=== PATIENT | male | born 1960 | race Caucasian/White ===

== ENCOUNTER 2017-04-13 10:30 | Emergency (ER) | payer OTHER ==
[~2017-04-13] VITALS: Ht 188 cm; Wt 99.8 kg
[~2017-04-13 10:30] MED LIST: ALBU90I INH; ALBU90OI INH; AMOCLA875 PO; AMOX500 PO; ARTANE PO; Abilify2 MG; BENZ.5 PO; BENZ1 PO; BENZ2; Benztropine Me0.5 MG; CEPH500 PO; CLOZ100 PO; COGENTIN; DEPRESSION MED; FLUP5; GABA300 PO; HALO.5; HYDACE5 PO; Haldol Dec100 MG/1 M IM; IBUP800 PO; LORA.5; LORA1 PO; NAPR500; NAPR500 PO; OFLO.3OTSO LEFTEAR; OLAN10; PARO20; PARO30 PO; PENVK500 PO; PROLIXIN; Prednisone20 MG PO; RXHYD5325 PO; RXHYDACE PO; RXPENVK250 PO; SEROQUEL; SYMBYAX PO; TRAM50 PO; TRAZ50; TRIH2; [UNRECOGNIZED DRUG - OTHER]; [UNRECOGNIZED DRUG - REMARK]
[2017-04-13 11:20] LABS: BASOPHILS ABSOLUTE AUTO 0.12 K/mm3 (0.00-0.23); BASOPHILS PERCENT AUTO 1 % (0-2); EOSINOPHILS ABSOLUTE AUTO 0.37 K/mm3 (0.00-0.68); EOSINOPHILS PERCENT AUTO 3 % (0-6); Hemoglobin 15.4 g/dL (13.5-17.5); IMMATURE GRAN ABSOLUTE AUTO 0.22 K/mm3 (0.00-0.10); IMMATURE GRAN PERCENT AUTO 2 % (0-1); LYMPHOCYTES ABSOLUTE AUTO 3.66 K/mm3 (0.84-5.20); LYMPHOCYTES PERCENT AUTO 31 % (21-46); MONOCYTES ABSOLUTE AUTO 0.62 K/mm3 (0.16-1.47); MONOCYTES PERCENT AUTO 5 % (4-13); Mean Corpuscular HGB 31.8 pg (26.0-34.0); Mean Corpuscular HGB Conc 33.5 g/dL (31.5-36.5); Mean Corpuscular Volume 95 fL (80-100); Mean Platelet Volume 10.6 fL (9.1-12.4); NEUTROPHILS ABSOLUTE AUTO 7.02 K/mm3 (1.96-9.15); NEUTROPHILS PERCENT AUTO 58 % (41-73); Platelet Count 259 K/mm3 (150-400); RDW Coefficient Variation 13.3 % (11.7-14.2); RDW Standard Deviation 47.2 fL (35.1-46.3); Red Blood Cell Count 4.84 M/mm3 (4.30-5.90); White Blood Cell Count 12.01 K/mm3 (4.00-11.30)
[2017-04-13 11:22] LABS: International Normalized Ratio 1.1; Prothrombin Time Results 11.5 Sec (9.7-11.5)
[2017-04-13 11:26] LABS: Alanine Aminotransfer (ALT/SGP 35 U/L (12-78); Albumin, Blood 3.9 g/dL (3.4-5.0); Albumin/Globulin Ratio 0.9 (0.8-1.8); Alk Phos 150 U/L (50-136); Anion Gap 8 mmol/L (6-16); Aspartate Aminotrans (AST/SGOT 33 U/L (12-37); Bilirubin, Total 0.5 mg/dL (0.1-1.0); Blood Urea Nitrogen 11 mg/dL (8-24); Bun/Creatinine Ratio 10.5 (12.0-20.0); CO2, Blood 27 mmol/L (21-32); Calcium, Blood 9.1 mg/dL (8.5-10.1); Chloride, Blood 105 mmol/L (98-108); Creatinine, Blood 1.05 mg/dL (0.60-1.20); Ethanol (Alcohol), Blood, Med <3 mg/dL; Globulin, Blood 4.2 g/dL (2.2-4.0); Glomerular Filtration Rate >60 (60-); Glucose, Blood 113 mg/dL (70-99); Potassium, Blood 3.9 mmol/L (3.5-5.5); Sodium, Blood 140 mmol/L (136-145); Total Protein, Blood 8.1 g/dL (6.4-8.2)
[2017-04-13] MEDS ORDERED: LORA.5 PO (12:46)
[2017-04-13] MEDS ORDERED: LATUDA80 MG PO (12:46)
[2017-04-13] MEDS ORDERED: GABA300 (12:47)
[2017-04-13] MEDS ORDERED: POLYOX WSR-3011 GM (12:47)
[2017-04-13] MEDS ORDERED: Haldol Dec100 MG/1 M (12:48)
[2017-04-13] MEDS ORDERED: Benztropine Me0.5 MG PO (12:48)
[2017-04-13] MEDS ORDERED: CYCL10 PO (12:49)
== END 2017-04-13 13:29 | disposition short-term general hospital (02) ==
LOC: ER 10:30
PROVIDERS: Emergency Medicine
DX: S22.42XA Multiple fractures of ribs, left side, initial encounter for closed fracture (principal); S22.20XA Unspecified fracture of sternum, initial encounter for closed fracture; S82.041A Displaced comminuted fracture of right patella, initial encounter for closed fracture; S22.079A Unspecified fracture of T9-T10 vertebra, initial encounter for closed fracture; S60.511A Abrasion of right hand, initial encounter; S39.91XA Unspecified injury of abdomen, initial encounter; F17.210 Nicotine dependence, cigarettes, uncomplicated; Z86.19 Personal history of other infectious and parasitic diseases; Z90.89 Acquired absence of other organs; V49.9XXA Car occupant (driver) (passenger) injured in unspecified traffic accident, initial encounter
CPT/HCPCS: 70450; 71045; 71260; 72125; 72170; 73562-RT; 74177; 80053; 82947; 83690; 84484; 85025; 85610; 85730; 86850; 86900; 86901; 93005; 93010; 96361; 96374; 96375; 99285; G0480; J2270; J2405; J7030; Q9967

== ENCOUNTER 2017-05-04 11:55 | Emergency (ER) | payer OTHER ==
[~2017-05-04] VITALS: Ht 185.4 cm; Wt 133.8 kg
[~2017-05-04 11:55] MED LIST changes: +Benztropine Me0.5 MG PO; +CYCL10 PO; +GABA300; +Haldol Dec100 MG/1 M; +LATUDA80 MG PO; +LORA.5 PO; +POLYOX WSR-3011 GM
== END 2017-05-04 13:45 | disposition home or self-care (01) ==
LOC: ER 11:55
DX: I82.401 Acute embolism and thrombosis of unspecified deep veins of right lower extremity (principal); F20.0 Paranoid schizophrenia; F17.210 Nicotine dependence, cigarettes, uncomplicated; Z79.899 Other long term (current) drug therapy
CPT/HCPCS: 99282

== ENCOUNTER 2018-07-08 11:10 | Emergency (ER) | payer OTHER ==
[~2018-07-08] VITALS: Ht 185.4 cm; Wt 136.1 kg
== END 2018-07-08 13:52 | disposition home or self-care (01) ==
LOC: ER 11:10
DX: R45.1 Restlessness and agitation (principal); F17.210 Nicotine dependence, cigarettes, uncomplicated; Z79.899 Other long term (current) drug therapy
CPT/HCPCS: 99283

== ENCOUNTER → 2019-03-02 | Outpatient (CLI) | payer OTHER ==
[2019-03-02 11:24] LABS: BASOPHILS ABSOLUTE AUTO 0.05 K/mm3 (0.00-0.23); BASOPHILS PERCENT AUTO 1 % (0-2); EOSINOPHILS ABSOLUTE AUTO 0.26 K/mm3 (0.00-0.68); EOSINOPHILS PERCENT AUTO 5 % (0-6); Hematocrit 41.8 % (37.0-53.0); Hemoglobin 13.9 g/dL (13.5-17.5); IMMATURE GRAN ABSOLUTE AUTO 0.01 K/mm3 (0.00-0.10); IMMATURE GRAN PERCENT AUTO 0 % (0-1); LYMPHOCYTES ABSOLUTE AUTO 1.89 K/mm3 (0.84-5.20); LYMPHOCYTES PERCENT AUTO 33 % (21-46); MONOCYTES PERCENT AUTO 7 % (4-13); Mean Corpuscular HGB Conc 33.3 g/dL (31.5-36.5); Mean Corpuscular Volume 93 fL (80-100); Mean Platelet Volume 9.8 fL (9.1-12.4); NEUTROPHILS ABSOLUTE AUTO 3.14 K/mm3 (1.96-9.15); NEUTROPHILS PERCENT AUTO 55 % (41-73); Platelet Count 254 K/mm3 (150-400); RDW Standard Deviation 44.2 fL (35.1-46.3); Red Blood Cell Count 4.49 M/mm3 (4.30-5.90); White Blood Cell Count 5.75 K/mm3 (4.00-11.30)
[2019-03-02 11:36] LABS: Albumin, Blood 4.1 g/dL (3.4-5.0); Albumin/Globulin Ratio 1.1 (0.8-1.8); Bilirubin, Total 0.7 mg/dL (0.1-1.0); Bun/Creatinine Ratio 11.3 (12.0-20.0); Calcium, Blood 9.1 mg/dL (8.5-10.1); Creatinine, Blood 1.33 mg/dL (0.60-1.20); Globulin, Blood 3.6 g/dL (2.2-4.0); Potassium, Blood 3.9 mmol/L (3.5-5.5); Total Protein, Blood 7.7 g/dL (6.4-8.2)
== END | disposition home or self-care (01) ==
LOC: LAB SHORT 11:20 → LAB EV 11:20
PROVIDERS: General Practice
DX: F20.9 Schizophrenia, unspecified (principal)
CPT/HCPCS: 80053; 85025

== ENCOUNTER 2019-10-29 18:12 | Emergency (ER) | payer OTHER ==
[~2019-10-29] VITALS: Ht 185.4 cm; Wt 136.1 kg
[2019-10-29] MEDS ORDERED: IBUP800 PO (20:03)
== END 2019-10-29 20:21 | disposition home or self-care (01) ==
LOC: ER 18:12
DX: M54.42 Lumbago with sciatica, left side (principal); F20.0 Paranoid schizophrenia; Z79.899 Other long term (current) drug therapy; F17.210 Nicotine dependence, cigarettes, uncomplicated
CPT/HCPCS: 96372; 99283-25; J1100; J1170; J1885

== ENCOUNTER 2019-12-27 12:53 | Emergency (ER) | payer OTHER ==
[~2019-12-27] VITALS: Ht 185.4 cm; Wt 154.2 kg
[2019-12-27] MEDS ORDERED: BENZ2 PO (13:01)
[2019-12-27] MEDS ORDERED: HALO5 PO (13:01)
[2019-12-27] MEDS ORDERED: IBUP800 PO (13:54)
[2019-12-27] MEDS ORDERED: Robaxin-750750 MG PO (13:54)
== END 2019-12-27 14:19 | disposition home or self-care (01) ==
LOC: ER 12:53
DX: M25.552 Pain in left hip (principal); F20.0 Paranoid schizophrenia; F17.200 Nicotine dependence, unspecified, uncomplicated; Z79.899 Other long term (current) drug therapy
CPT/HCPCS: 99283

== ENCOUNTER 2020-04-26 13:58 | Emergency (ER) | payer OTHER ==
[~2020-04-26] VITALS: Ht 185.4 cm; Wt 113.4 kg
[~2020-04-26 13:58] MED LIST changes: +BENZ2 PO; +HALO5 PO; +Robaxin-750750 MG PO
== END 2020-04-26 14:35 | disposition left against medical advice (07) ==
LOC: ER 13:58
DX: M54.30 Sciatica, unspecified side (principal); Z53.21 Procedure and treatment not carried out due to patient leaving prior to being seen by health care provider
CPT/HCPCS: 96372; 99282-25; J1885

== ENCOUNTER 2020-05-08 07:23 | Emergency (ER) | payer OTHER ==
[~2020-05-08] VITALS: Ht 185.4 cm; Wt 136.1 kg
[2020-05-08] MEDS ORDERED: METPRE4DP PO (07:46)
[2020-05-08 08:25] LABS: Alanine Aminotransfer (ALT/SGP 31 U/L (12-78); Albumin, Blood 3.8 g/dL (3.4-5.0); Albumin/Globulin Ratio 1.1 (0.8-1.8); Alk Phos 97 U/L (50-136); Anion Gap 7 mmol/L (6-16); Aspartate Aminotrans (AST/SGOT 14 U/L (12-37); Bilirubin, Total 0.7 mg/dL (0.1-1.0); Blood Urea Nitrogen 19 mg/dL (8-24); Bun/Creatinine Ratio 18.6 (12.0-20.0); CO2, Blood 26 mmol/L (21-32); Calcium, Blood 9.1 mg/dL (8.5-10.1); Chloride, Blood 106 mmol/L (98-108); Creatinine, Blood 1.02 mg/dL (0.60-1.20); Globulin, Blood 3.6 g/dL (2.2-4.0); Glomerular Filtration Rate >60 (60-); Glucose, Blood 121 mg/dL (70-99); Magnesium, Blood 2.3 mg/dL (1.6-2.4); Potassium, Blood 3.6 mmol/L (3.5-5.5); Sodium, Blood 139 mmol/L (136-145); Total Protein, Blood 7.4 g/dL (6.4-8.2)
== END 2020-05-08 10:37 | disposition home or self-care (01) ==
LOC: ER 07:23
PROVIDERS: Emergency Medicine
DX: R25.1 Tremor, unspecified (principal); F17.210 Nicotine dependence, cigarettes, uncomplicated
CPT/HCPCS: 36415; 80053; 83735; 93005; 93010; 99284-25